=== PATIENT | male | born 1960 | race Hispanic/Latino ===

== ENCOUNTER 2018-02-05 13:35 | Outpatient (CLI) | payer OTHER ==
--- NOTE | 2018-02-05 16:12 | MRI ---
LEFT SHOULDER MRI WITHOUT IV CONTRAST: History: 57-year-old male with history of left shoulder pain with tingling down fingers. Technique: Multiplanar, multisequence MRI examination of the left shoulder is performed. FINDINGS: AC joint arthrosis changes are noted. There is a moderate amount of fluid within the subacromial burs a. There is a midgrade bursal sided tear of the conjoined tendon with a probable small focus of calci fic tendinosis. There also appears to be a low grade undersurface partial thickness tear of the anter ior supraspinatus tendon. There is evidence for biceps tendinopathy. Interstitial and laminating tear of the subscapularis tendon. Tendinopathy of the supraspinatus and infraspinatus tendons. Rotator cu ff muscles are within normal limits in signal and volume. Visualized labrum appears intact. IMPRESSION: Partial thickness tears of the supraspinatus and conjoined tendons and subscapularis tendon. No compl ete full thickness retracted tear. Biceps and supraspinatus and infraspinatus tendinopathy. AC joint arthrosis changes with a moderate amount of fluid within the subacromial bursa. POS: [facility]
--- NOTE | 2018-02-05 16:20 | MRI ---
CERVICAL SPINE MRI WITHOUT CONTRAST: 02/05/18 HISTORY: Cervical radiculopathy. Chronic left shoulder pain, tingling down the fingers. COMPARISON: None. TECHNIQUE: Cervical spine MRI is performed without intravenous gadolinium administration. Multisequential, multi planar imaging is performed. FINDINGS: Straightening of the normal cervical lordosis is felt to be due to patient position. There is no sign ificant STIR hyperintensity to suggest vertebral body edema or ligamentous injury. Appropriate T1 marrow signal intensity of the cervical vertebrae. Vertebral body height is maintained . No fracture. The visualized brain parenchyma, cervicomedullary junction, cervical cord and the uppe r thoracic cord have a normal size and signal intensity. C2-C3: There is a disc osteophyte complex. No significant central canal stenosis or neural foraminal narrowing. C3-C4: Broad based disc osteophyte complex abuts the thecal sac. There is no significant central komal l stenosis. There are degenerative changes in the bilateral uncovertebral joints along with mild bila teral facet hypertrophy. Right neural foramen is minimally narrowed. There is moderate left neural fo raminal narrowing. C4-C5: Broad based disc osteophyte complex abuts the thecal sac. Ventral CSF signal intensity is effa rj on the axial images. There is mild deformity of the cervical cord, without T2 hyperintensity in t he cord. Overall, there is mild to moderate central canal stenosis. Degenerative change in bilateral uncovertebral joints results in moderate right and severe left foraminal narrowing. There is mild lef t facet hypertrophy. C5-C6: Broad based disc osteophyte complex abuts the thecal sac. Ventral CSF signal intensity is obsc ured. There is flattening deformity of the cord, without T2 hyperintensity of the cord. Moderate cent ral canal stenosis. Degenerative changes in bilateral uncovertebral joints results in moderate to sev ere bilateral foraminal narrowing. C6-C7: Broad based disc osteophyte complex abuts the thecal sac. Ventral CSF signal intensity is stil l maintained. Mild central canal stenosis. Mild right and moderate left foraminal narrowing. C7-T1: There is a broad based disc osteophyte complex without significant central canal stenosis. Mod erate bilateral foraminal narrowing. IMPRESSION: 1. Degenerative changes of the cervical spine as detailed above. There is significant central ca nal stenosis, greatest at C5-C6. 2. Significant foraminal narrowing as detailed above. POS: OFF
== END 2018-02-05 13:36 | disposition home or self-care (01) ==
LOC: SCSMRI 13:35
PROVIDERS: ATTEND Orthopaedic Surgery
DX: M47.22 Other spondylosis with radiculopathy, cervical region (principal); M25.512 Pain in left shoulder; M48.02 Spinal stenosis, cervical region; M99.81 Other biomechanical lesions of cervical region; M75.112 Incomplete rotator cuff tear or rupture of left shoulder, not specified as traumatic; M19.012 Primary osteoarthritis, left shoulder
CPT/HCPCS: 72141